=== PATIENT | male | born 1990 | race Caucasian/White ===

== ENCOUNTER 2020-02-22 23:11 | Emergency (ER) | payer OTHER, SELFPAY ==
[2020-02-22 23:20] VITALS: BP 169/119; PULSE 130; RESP 16; TEMP 36.3; O2SAT 100
--- NOTE | 2020-02-22 23:38 | ED.WOUNDLAC ---
HPI - Wound/Laceration General Chief Complaint: Wound/Laceration Stated Complaint: elbow lac Time Seen by Provider: 02/22/20 23:22 History of Present Illness HPI narrative: He sustained a laceration to the right forarm this evening when he fell through a window. He has moderate pain and has been having some difficulty controlling the bleeding. History limited by intoxication. Related Data Home Medications Medication Instructions Recorded Confirmed No Home Medications 01/04/20 01/04/20 Allergies Allergy/AdvReac Type Severity Reaction Status Date / Time bee venom protein (honey bee) Allergy Unknown Unknown Verified 01/04/20 09:08 sumatriptan Allergy Unknown Hives Verified 01/04/20 09:08 Review of Systems Review of Systems: All systems reviewed & are unremarkable except as noted in HPI and below Constitutional: Constitutional: Denies fever(s) Cardiovascular: Cardiovascular: Denies chest pain Respiratory: Respiratory: Denies dyspnea Gastrointestinal: Gastrointestinal: Denies nausea Musculoskeletal: Musculoskeletal: Denies back pain Neurologic: Denies dizziness and Denies weakness PMFSH Surgical History Surgical History H/O hand surgery H/O thyroidectomy Family History Family History Mother Family history of malignant neoplasm of breast in first degree relative Family history of lupus erythematosus Social History Social History Social History: lives with girlfriend Smoking status: Light tobacco smoker Second hand tobacco smoke exposure: Yes Alcohol intake: current Exam Const: General: healthy appearing, no acute distress and alert Nutritional Appearance: well nourished Orientation/consciousness: patient oriented x3 HENMT: Head: normal to inspection Resp: Effort & Inspection: normal respiratory effort Auscultation: clear to auscultation bilaterally Cardio: Rate: regular rate Rhythm: regular rhythm Skin: Other: 8 cm laceration to right forearm with exposed subcutaneous fat. Neuro: General: patient oriented x3, moves all extremities and no focal motor deficits Speech: normal speech Course Vital Signs Vital signs: Vital Signs Temperature 36.3 C L 02/22/20 23:20 Pulse Rate 130 H 02/22/20 23:20 Respiratory Rate 16 02/22/20 23:20 Blood Pressure 169/119 H 02/22/20 23:20 Pulse Oximetry 100 02/22/20 23:20 Temperature 36.3 C L 02/22/20 23:20 Pulse Rate 70 02/23/20 00:57 Respiratory Rate 18 02/23/20 00:57 Blood Pressure 132/77 02/23/20 00:57 Pulse Oximetry 98 02/23/20 00:57 Procedures Laceration Laceration 1: Site: upper extremity Side (If applicable): right Size (cm): 8 Description: linear Local Anesthetic: lidocaine 1% and with epi Amount of anesthesia used (mL): 5 Pre-repair: wound explored and irrigated extensively ====== Skin Level ====== Skin layer closed with: vicryl Size (cm): 4-0 Number of sutures: 15 Technique: other (subcuticular) ====== Subcutaneous Layer ====== Subcutaneous layer closed with: vicryl Size: 4-0 Number of sutures: 5 ====== Muscle Layer ====== ====== Tendon Layer ====== MDM - Wound/Laceration MDM Narrative Medical decision making narrative: Wound irrigated. No foreign body found. Laceration closed. tetanus updated. Differential Diagnosis Differential diagnosis: Likely laceration Discharge Plan Discharge Clinical Impression: Laceration Arm laceration Qualifiers: Encounter type: initial encounter Laterality: right Qualified Code(s): S41.111A - Laceration without foreign body of right upper arm, initial encounter Patient Disposition: Home, Self-Care Condition: Stable Instructions: Laceration (ED), Care For Your Abs
[2020-02-22] MEDS: TETANUS,DIPHTHERIA,AC PERTUSSIS ADULT (0.5 ML) BOOSTRIX IM (23:53)
[2020-02-23 00:57] VITALS: BP 132/77; PULSE 70; RESP 18; O2SAT 98
== END 2020-02-23 00:58 | disposition home or self-care (01) ==
PROVIDERS: Emergency Provider Emergency Medicine; PCP Family Medicine
DX: S51.811A Laceration without foreign body of right forearm, initial encounter (principal); E89.0 Postprocedural hypothyroidism; Z23 Encounter for immunization; F17.200 Nicotine dependence, unspecified, uncomplicated; W13.4XXA Fall from, out of or through window, initial encounter
CPT/HCPCS: 12034; 12044; 90471; 90715; 99282

== ENCOUNTER 2020-09-08 10:47 | Outpatient (CLI) | payer OTHER, SELFPAY ==
--- NOTE | ~2020-09-08 | XR_ITS ---
XR foot RT 2V DATE: 09/08/2020 10:56 INDICATION: Right foot injury, contusion, pain TECHNIQUE: AP and lateral views COMPARISON: None FINDINGS: No fracture or dislocation, periosteal reaction or bone destruction is detected. IMPRESSION: Negative Reviewed, dictated and finalized at location A. [employer] IMPRESSION: Negative
== END 2020-09-08 10:48 | disposition home or self-care (01) ==
LOC: ANHBWCIMG 10:49
PROVIDERS: PCP Family Medicine; Visit Provider Family Medicine
DX: S90.31XA Contusion of right foot, initial encounter (principal); X58.XXXA Exposure to other specified factors, initial encounter
CPT/HCPCS: 73620

== ENCOUNTER 2021-06-25 14:57 | Outpatient (CLI) | payer OTHER, SELFPAY ==
[2021-06-25 19:02] LABS: Hematocrit 45.3 % (42.0-52.0); Hemoglobin 15.8 g/dL (14.0-18.0); Mean Corpuscular HGB Conc 34.9 g/dl (32-36); Mean Corpuscular Hemoglobin 33.2 pg (26-34); Mean Corpuscular Volume 95.2 fl (80-100); Mean Platelet Volume 11.1 fl (7.4-10.4); Platelet Count Result 226 k/mm3 (150-375); Red Blood Count 4.76 M/mm3 (4.6-6.20); Red Cell Distribution Width 12.5 % (11.5-14.5); White Blood Count 9.3 K/mm3 (4.5-10.0)
[2021-06-25 19:14] LABS: Alanine Aminotransferase 38 U/L (4-50); Albumin Level 5.1 g/dL (3.5-5.1); Alkaline Phosphatase 82 U/L (38-126); Anion Gap 12 mmol/L (8-16); Aspartate Amino Transferase 33 U/L (17-59); Bilirubin,Total 0.4 mg/dL (0.2-1.3); Blood Urea Nitrogen 18 mg/dL (9-20); Calcium 9.7 mg/dL (8.4-10.2); Carbon Dioxide 25 mmol/L (22-30); Chloride 105 mmol/L (98-107); Estimated Glomerular Filt Rate > 60; Glucose 103 mg/dL (65-110); Potassium 4.4 mmol/L (3.4-5.0); Sodium 142 mmol/L (137-145)
[2021-06-25 19:15] LABS: Hemoglobin A1C 5.1 % (<5.7)
[2021-06-25 19:46] LABS: Thyroid Stimulating Hormone 0.743 uIU/mL (0.465-4.680)
[2021-06-25 21:24] LABS: Vitamin D 25 Hydroxy 27.3 ng/mL
== END 2021-06-25 14:58 | disposition home or self-care (01) ==
LOC: ANHBWCLAB 14:58
PROVIDERS: PCP Family Medicine; Visit Provider Family Medicine
DX: E66.3 Overweight (principal); G47.00 Insomnia, unspecified; R53.83 Other fatigue; G43.909 Migraine, unspecified, not intractable, without status migrainosus
CPT/HCPCS: 36415; 80053; 82306; 83036; 84443; 85027

== ENCOUNTER 2022-05-10 14:30 | Outpatient (CLI) | payer OTHER, SELFPAY ==
[2022-05-11 06:20] LABS: Rapid Plasma Reagin Non-Reactive (NonReactive)
[2022-05-12 17:40] LABS: HIV 1 2 Ag Ab 4th Gen w Rflxs Non-reactive (Non-reactive)
== END 2022-05-10 14:31 | disposition home or self-care (01) ==
PROVIDERS: PCP Family Medicine; Visit Provider Family Medicine
DX: Z72.51 High risk heterosexual behavior (principal)
CPT/HCPCS: 36415; 86592; 87389; 87491; 87591